=== PATIENT | male | born 1955 | race Caucasian/White ===

== ENCOUNTER 2025-02-08 07:57 | Day surgery (SDC) | payer MEDICARE, OTHER, SELFPAY ==
--- NOTE | 2025-02-08 | PATH_ITS ---
[facility] Accession Number: [id number] No. of containers..01 Tissue . 01 Material submitted: . body - POLYP AT 40 . 01 Diagnosis: COLON POLYP AT 40 CM: Inflammatory polyp. Negative for dysplasia or malignancy. MRV 02/13/2025 1328 Local . 01 Electronically signed: . Percy Hallman MD, PhD, Pathologist NPI- [id number] . 01 Gross description: . POLYP AT 40: Received in formalin is 1 fragment of cotter soft tissue measuring 0.8 x 0.6 x 0.5 cm. Specimen is submitted in its entirety in 1 cassette. /WYATT 02/10/2025 0127 Local . 01 Pathologist provided ICD-10: K51.40 . 01 CPT . 348142 Specimen Comment: A courtesy copy of this report has been sent to [phone] Performed at: [address] [facility] [address], [place], [place] [id number] MD Trev Sahni MD Phone: [phone]
[2025-02-08 08:28] VITALS: BP 158/76; PULSE 84; RESP 16; TEMP 36.1; O2SAT 99
[2025-02-08] MEDS: LACTATED RINGERS 1,000 ML 42 ML IV (08:49)
--- NOTE | 2025-02-08 08:49 | P.HP_ITS ---
History of Present Illness History of Present Illness Date Patient Seen: 02/08/25 Chief complaint: [facility] Social History Smoking Status: Former smoker alcohol intake: current Meds Home Medications and Allergies Home Medications Medication Instructions Recorded Confirmed Type sodium,potassium,mag sulfates 17.5 See Rx Instructions PO .COMPLEX 01/20/25 Rx gram-3.13 gram-1.6 gram oral soln #354 mL (Suprep Bowel Prep Kit) aspirin 81 mg tablet,delayed 81 mg PO DAILY 02/08/25 02/08/25 History release empagliflozin 25 mg tablet 25 mg PO DAILY 02/08/25 02/08/25 History (Jardiance) gabapentin 600 mg tablet 1,200 mg PO BEDTIME 02/08/25 02/08/25 History insulin glargine 100 unit/mL (3 60 unit SUBCUT BEDTIME 02/08/25 02/08/25 History mL) subcutaneous pen (Lantus Solostar U-100 Insulin) losartan 100 1 tab PO DAILY 02/08/25 02/08/25 History mg-hydrochlorothiazide 25 mg tablet metformin 1,000 mg tablet 1,000 mg PO BID 02/08/25 02/08/25 History metoprolol succinate 25 mg 25 mg PO DAILY 02/08/25 02/08/25 History tablet,extended release 24 hr omeprazole 20 mg capsule,delayed 20 mg PO DAILY 02/08/25 02/08/25 History release rosuvastatin 20 mg tablet 20 mg PO ONCE PM 02/08/25 02/08/25 History semaglutide 0.25 mg or 0.5 mg (2 1 mg SUBCUT WEEKLY 02/08/25 02/08/25 History mg/3 mL) subcutaneous pen injector (Ozempic) tamsulosin 0.4 mg capsule 0.4 mg PO DAILY 02/08/25 02/08/25 History terbinafine HCl 250 mg tablet 250 mg PO DAILY 02/08/25 02/08/25 History Allergies Allergy/AdvReac Type Severity Reaction Status Date / Time lisinopril AdvReac Cough Verified 02/08/25 08:49 Exam Vital Signs (past 8 hours): - 02/08/25 08:28 Temperature 97.0 F L Pulse Rate 84 Respiratory Rate 16 Blood Pressure 158/76 H Pulse Oximetry 99 Oxygen Delivery Method Room Air Oxygen Delivery Method Room Air Narrative Exam Narrative: Oropharynx free of lesions Chest clear to auscultation percussion Cardiac exam reveals no S3 or murmur Assessment & Plan Assessment & Plan narrative: Need for follow-up screening colonoscopy. Risks, benefits, alternatives have been explained. Time-Based Coding :: [TOTAL MINUTES] spent with patient and on the chart (including review of chart, obtaining history, exam, reviewing outside data, placing orders, documenting exam and treatment plan, and counseling patient) on [DATE]. PROFEE Non Destructive Evaluation Technician Document charge(s): No
--- NOTE | 2025-02-08 08:51 | PM.OP.COLON ---
Operative Date/Time/Diagnoses Date of procedure: 02/08/25 Pre-op diagnosis: See indication and findings Procedure & Clinicians Study performed: Colonoscopy Same procedure as scheduled: Yes Indications: Follow-up screening colonoscopy Surgeon: Kaitlynn Caballero Procedure Notes Procedure in detail: After informed consent was obtained the patient was placed in left lateral decubitus position. The video colonoscope was introduced the rectum and slowly advanced cecum. Preparation was good. On slow withdrawal mucosa was carefully examined. The scope was removed. The patient tolerated procedure well. Blood loss none Complications none Sedation mac Findings 1. 10-12 mm semi pedunculated polyp at 40 cm hot snared and removed completely 2. Otherwise negative colonoscopy to cecum Mr. Vaughn will need follow-up colonoscopy in 5 years
[2025-02-08 09:29] VITALS: BP 111/61; PULSE 76; RESP 16; TEMP 36.2; O2SAT 94
[2025-02-08 09:34] VITALS: BP 96/53; PULSE 74; RESP 17; O2SAT 95
[2025-02-08 09:39] VITALS: BP 106/56; PULSE 81; RESP 14; O2SAT 98
[2025-02-08 09:45] VITALS: BP 124/68; PULSE 80; RESP 12; O2SAT 98
[2025-02-08 09:49] VITALS: BP 131/74; PULSE 77; RESP 12; TEMP 36.9; O2SAT 98
== END 2025-02-08 10:10 | disposition home or self-care (01) ==
PROVIDERS: PCP Internal Medicine; Referring Provider Internal Medicine Gastroenterology; Visit Provider Internal Medicine Gastroenterology
PROC: 0DJD8ZZ Inspection of Lower Intestinal Tract, Via Natural or Artificial Opening Endoscopic (ICD-10-PCS; CPT 45378; principal; 2025-02-08 09:30)
DX: Z12.11 Encounter for screening for malignant neoplasm of colon (principal); Z87.891 Personal history of nicotine dependence; K51.40 Inflammatory polyps of colon without complications
CPT/HCPCS: 45385; J2704